=== PATIENT | female | born 1970 | race Caucasian/White ===

== ENCOUNTER 2017-12-21 00:04 | Emergency (ER) | payer MEDICARE, MEDICAID ==
[~2017-12-21] VITALS: Ht 167.6 cm; Wt 78.6 kg
[2017-12-21 00:43] LABS: COLOR,URINE YELLOW (Yellow); GLUCOSE, URINE NEGATIVE (Neg); KETONES,URINE TRACE mg/dl (Neg); LEUKOCYTE ESTERASE ,URINE NEGATIVE (Neg); NITRITES, URINE NEGATIVE (Neg); OCCULT BLOOD,URINE NEGATIVE (Neg); PH,URINE 6.5 (4.8-8.0); PROTEIN,URINE TRACE mg/dl (Neg); UROBILINOGEN,URINE 0.2 E.U/dL (0.2-1.0)
[2017-12-21 01:06] LABS: BACTERIA,URINE FEW /HPF (Neg); CLARITY,URINE CLOUDY (Clear); MUCUS STRANDS MANY /LPF (Neg); RBC,URINE NONE SEEN /HPF (0-2); SQUAMOUS EPITHELIAL CELL,UR MANY /LPF (FEW); UA COLLECTION TYPE CLN CATCH MIDSTREAM
[2017-12-21 01:06] LABS: BASOPHILS # (AUTO) 0.1 X10'3 (0-0.2); BASOPHILS % (AUTO) 0.6 % (0-1); EOSINOPHILS # (AUTO) 0.4 X10'3 (0-0.9); EOSINOPHILS % (AUTO) 3.1 % (0-6); HEMATOCRIT 34.4 % (35.0-45.0); HEMOGLOBIN 11.6 g/dl (12.0-16.0); LYMPHOCYTES # (AUTO) 2.6 X10'3 (1.1-4.8); MEAN CORPUSCULAR HEMOGLOBIN 29.6 PG (27.0-31.0); MEAN CORPUSCULAR HGB CONC 33.8 % (33.0-36.5); MEAN CORPUSCULAR VOLUME 87.7 FL (78-98); MEAN PLATELET VOLUME 8.3 FL (7.4-10.4); MONOCYTES # (AUTO) 0.4 X10'3 (0-0.9); MONOCYTES % (AUTO) 3.2 % (2-12); NEUTROPHILS # (AUTO) 9.5 X10'3 (1.8-7.7); NEUTROPHILS % (AUTO) 73.1 % (42-75); PLATELET COUNT 350 X10'3 (140-440); RED BLOOD COUNT 3.92 X10'6 (4.20-5.60); RED CELL DISTRIBUTION WIDTH 11.8 % (11.5-14.5)
[2017-12-21 01:16] LABS: PROTHROMBIN TIME 9.9 SECONDS (9.0-12.0)
[2017-12-21 01:22] LABS: ALANINE AMINOTRANSFERASE 84 U/L (12-78); ALBUMIN 3.7 G/DL (3.4-5.0); ALBUMIN/GLOBULIN RATIO 0.8 (1.1-1.5); ALKALINE PHOSPHATASE 229 IU/L (46-116); ANION GAP 9 (8-16); ASPARTATE AMINO TRANSFERASE 32 U/L (10-37); BILIRUBIN,TOTAL 0.5 MG/DL (0.1-1.0); BLOOD UREA NITROGEN 18 MG/DL (7-18); BUN/CREATININE RATIO 17.5 (6.6-38.0); CALCIUM 9.4 MG/DL (8.5-10.1); CHLORIDE 104 MMOL/L (99-107); CREATININE 1.03 MG/DL (0.40-0.90); GLUCOSE 106 MG/DL (70-104); POTASSIUM 3.7 MMOL/L (3.5-5.1); SODIUM 143 MMOL/L (135-145); TOTAL CARBON DIOXIDE 29.9 MMOL/L (24-32); TOTAL PROTEIN 8.2 G/DL (6.4-8.2); eGFR 57 ML/MIN
[2017-12-21] MEDS ORDERED: ondansetron/PF 4mg/2ml inj IV ONE (01:55)
[2017-12-21] MEDS ORDERED: morphine 4 MG/ML inj SYRINge IV ONE (01:55)
[2017-12-21] MEDS ORDERED: LORazepam 2 mg/ml vial IV ONE (01:55)
[2017-12-21] MEDS ORDERED: normal saline 1000ML IV soln IVB ONE (01:55)
[2017-12-21] MEDS ORDERED: iohexol 300mg/ml 100ml inj. ONE (02:00)
[2017-12-21 02:44] VITALS: BP 128/98
[2017-12-21] MEDS ORDERED: clindamycin 150mg capsule PO ONE (03:45)
[2017-12-21] MEDS ORDERED: CLIN-80 PO (03:47)
== END 2017-12-21 04:26 | disposition home or self-care (01) ==
LOC: ER 00:05
DX: L03.311 Cellulitis of abdominal wall (principal); E11.9 Type 2 diabetes mellitus without complications; I11.0 Hypertensive heart disease with heart failure; I50.9 Heart failure, unspecified; Z88.5 Allergy status to narcotic agent; Z88.0 Allergy status to penicillin; Z88.1 Allergy status to other antibiotic agents; Z88.2 Allergy status to sulfonamides; Z88.8 Allergy status to other drugs, medicaments and biological substances
CPT/HCPCS: 36415; 74177; 80053; 81001; 85025; 85610; 96361; 96374; 96375; 99285; J2060; J2270; J2405; J7030; Q9967

== ENCOUNTER 2017-12-23 01:18 | Emergency (ER) | payer MEDICARE, MEDICAID ==
[~2017-12-23] VITALS: Ht 167.6 cm; Wt 89.6 kg
[~2017-12-23 01:18] MED LIST: CLIN-80 PO
[2017-12-23 01:25] VITALS: BP 136/79
[2017-12-23] MEDS ORDERED: normal saline 1000ML IV soln IV ONE (01:35)
[2017-12-23 02:27] LABS: BASOPHILS % (AUTO) 0.4 % (0-1); EOSINOPHILS # (AUTO) 0.9 X10'3 (0-0.9); EOSINOPHILS % (AUTO) 8.7 % (0-6); HEMATOCRIT 30.8 % (35.0-45.0); HEMOGLOBIN 10.5 g/dl (12.0-16.0); LYMPHOCYTES # (AUTO) 2.1 X10'3 (1.1-4.8); MEAN CORPUSCULAR HEMOGLOBIN 30.2 PG (27.0-31.0); MEAN CORPUSCULAR HGB CONC 34.1 % (33.0-36.5); MEAN CORPUSCULAR VOLUME 88.5 FL (78-98); MEAN PLATELET VOLUME 7.8 FL (7.4-10.4); MONOCYTES # (AUTO) 0.4 X10'3 (0-0.9); MONOCYTES % (AUTO) 3.5 % (2-12); NEUTROPHILS % (AUTO) 67.4 % (42-75); PLATELET COUNT 336 X10'3 (140-440); RED BLOOD COUNT 3.48 X10'6 (4.20-5.60); RED CELL DISTRIBUTION WIDTH 12.4 % (11.5-14.5); WHITE BLOOD COUNT 10.4 X10'3 (4.5-11.0)
[2017-12-23 02:37] LABS: INR 0.9 INR; PARTIAL THROMBOPLASTIN TIME 28 SECONDS (22-32); PROTHROMBIN TIME 9.6 SECONDS (9.0-12.0)
[2017-12-23] MEDS ORDERED: HYDROcodone/acetaminophen 5mg/325mg tablet PO ONE (02:40)
[2017-12-23 02:48] LABS: ALANINE AMINOTRANSFERASE 155 U/L (12-78); ALBUMIN 3.1 G/DL (3.4-5.0); ALBUMIN/GLOBULIN RATIO 0.8 (1.1-1.5); ALKALINE PHOSPHATASE 291 IU/L (46-116); ANION GAP 11 (8-16); ASPARTATE AMINO TRANSFERASE 88 U/L (10-37); BILIRUBIN,TOTAL 0.2 MG/DL (0.1-1.0); BLOOD UREA NITROGEN 18 MG/DL (7-18); BUN/CREATININE RATIO 27.7 (6.6-38.0); CALCIUM 8.7 MG/DL (8.5-10.1); CHLORIDE 108 MMOL/L (99-107); CREATININE 0.65 MG/DL (0.40-0.90); GLUCOSE 138 MG/DL (70-104); MAGNESIUM 1.9 MG/DL (1.5-2.4); POTASSIUM 3.9 MMOL/L (3.5-5.1); SODIUM 144 MMOL/L (135-145); TOTAL CARBON DIOXIDE 25.2 MMOL/L (24-32); TOTAL PROTEIN 7.1 G/DL (6.4-8.2); eGFR > 90 ML/MIN
== END 2017-12-23 02:47 | disposition home or self-care (01) ==
LOC: ER 01:19
DX: L02.211 Cutaneous abscess of abdominal wall (principal); L03.311 Cellulitis of abdominal wall; I11.0 Hypertensive heart disease with heart failure; I50.9 Heart failure, unspecified; E11.9 Type 2 diabetes mellitus without complications; Z88.1 Allergy status to other antibiotic agents; Z88.2 Allergy status to sulfonamides; Z88.5 Allergy status to narcotic agent; Z88.0 Allergy status to penicillin; Z88.8 Allergy status to other drugs, medicaments and biological substances; Z98.890 Other specified postprocedural states
CPT/HCPCS: 36415; 80053; 83605; 83735; 84145; 85025; 85610; 85730; 87040; 99284; J7030

== ENCOUNTER 2018-08-15 08:53 | Inpatient (IN) | payer MEDICARE, MEDICAID ==
[2018-08-09 16:35] LABS: BASOPHILS # (AUTO) 0.1 X10'3 (0-0.2); EOSINOPHILS # (AUTO) 0.3 X10'3 (0-0.9); EOSINOPHILS % (AUTO) 3.5 % (0-6); LYMPHOCYTES % (AUTO) 30.8 % (21-51); MEAN CORPUSCULAR HEMOGLOBIN 28.3 PG (27.0-31.0); MEAN CORPUSCULAR HGB CONC 32.8 % (33.0-36.5); MEAN CORPUSCULAR VOLUME 86.4 FL (78-98); MONOCYTES # (AUTO) 0.4 X10'3 (0-0.9); MONOCYTES % (AUTO) 4.4 % (2-12); NEUTROPHILS # (AUTO) 5.9 X10'3 (1.8-7.7); NEUTROPHILS % (AUTO) 60.3 % (42-75); PRE OP HEMATOCRIT 40.8 % (35.0-45.0); PRE OP HEMOGLOBIN 13.4 g/dL (12.0-16.0); PRE OP PLATELET COUNT 409 X10'3 (140-440); RED BLOOD COUNT 4.72 X10'6 (4.20-5.60); RED CELL DISTRIBUTION WIDTH 13.2 % (11.5-14.5)
[2018-08-09 16:56] LABS: ALBUMIN 4.3 G/DL (3.4-5.0); ALBUMIN/GLOBULIN RATIO 1.1 (1.1-1.5); ALKALINE PHOSPHATASE 112 IU/L (46-116); BLOOD UREA NITROGEN 20 MG/DL (7-18); BUN/CREATININE RATIO 22.5 (6.6-38.0); CALCIUM 9.7 MG/DL (8.5-10.1); CHLORIDE 101 MMOL/L (99-107); CREATININE 0.89 MG/DL (0.40-0.90); PRE OP ALT 44 U/L (30-65); PRE OP ANION GAP 8 (8-16); PRE OP AST 22 U/L (10-37); PRE OP BILIRUB, TOTAL 1.2 MG/DL (0.0-1.0); PRE OP GLUCOSE 99 MG/DL (70-104); PRE OP POTASSIUM 3.7 MMOL/L (3.4-5.1); PRE OP SODIUM 140 MMOL/L (135-145); TOTAL CARBON DIOXIDE 31.4 MMOL/L (24-32); TOTAL PROTEIN 8.3 G/DL (6.4-8.2); eGFR 68 ML/MIN
[2018-08-15] VITALS (18 sets, daily range): BP systolic 110–161; BP diastolic 58–85
[~2018-08-15] VITALS: Ht 170.2 cm; Wt 106.7 kg
[~2018-08-15 08:53] MED LIST changes: +BACL20TA7 PO; +CHOL500044 PO; -CLIN-80 PO; +SERT50TA10 PO; +TOPI25TA49 PO; +cefazolin/dext.iso 2gm/100 ML IV ONE; +famotidine 20mg tablet PO ONE; +ringers solution, lacted 1,000 ML IV SCH; +tranexamic acid inj. 1,000 MG in normal saline 100ml IV soln 90 ML IV ONE
[2018-08-15] MEDS ORDERED: ketorolac trometh. 30mg/ml inj. ONE (10:06)
[2018-08-15] MEDS ORDERED: ROPIVAcaine 0.5% (5mg/ml) 30ml vial ONE ×3 (10:06→14:06)
[2018-08-15] MEDS ORDERED: vancomycin 1,000mg inj ONE (10:07)
[2018-08-15] MEDS ORDERED: MIDAZolam 1mg/ml 10ml vial ONE (11:58)
[2018-08-15] MEDS ORDERED: fentaNYL/PF 50MCG/1 ML 2ML syringe ONE (11:58)
[2018-08-15] MEDS ORDERED: BUPIVAcaine/dex-water/PF 7.5 mg/ml 2ml ampul ONE (11:59)
[2018-08-15] MEDS ORDERED: ringers solution, lacted 1,000 ML IV SCH (14:30)
[2018-08-15] MEDS ORDERED: ondansetron/PF 4mg/2ml inj IV PRN (14:30)
[2018-08-15] MEDS ORDERED: proCHLORperazine 10 MG/2 ml inj IV PRN (14:30)
[2018-08-15] MEDS ORDERED: meperidine/PF 25mg/ml syringe IV PRN ×3 (14:30)
[2018-08-15] MEDS ORDERED: HYDROmorphone 1 mg/ml syringe IV PRN (14:50)
[2018-08-15] MEDS ORDERED: bisacodyl 10mg suppository rectal RC PRN (14:50)
[2018-08-15] MEDS ORDERED: acetaminophen 325mg tablet PO PRN (14:50)
[2018-08-15] MEDS ORDERED: oxyCODONE IR 5mg (immed. release) tablet PO PRN (14:50)
[2018-08-15] MEDS ORDERED: diphenhydrAMINE 25mg capsule PO PRN ×2 (14:50)
[2018-08-15] MEDS ORDERED: magnesium hydroxide 30ml (MOM) UD suspension PO PRN (14:50)
[2018-08-15] MEDS: oxyCODONE IR 5mg (immed. release) tablet PO PRN ×2 (16:48→21:06)
[2018-08-15] MEDS: ceFAZolin 1GM/D5W- ADD-VANTAGE 50 ML IV SCH ×2 (16:49→23:12)
[2018-08-15] MEDS: baclofen 10mg tablet PO SCH ×2 (16:49→21:04)
[2018-08-15] MEDS ORDERED: tranexamic acid inj. 1,000 MG in normal saline 100ml IV soln 100 ML IV ONE (18:00)
[2018-08-15] MEDS: HYDROmorphone 1 mg/ml syringe IV PRN ×2 (18:43→23:08)
[2018-08-15] MEDS: ondansetron/PF 4mg/2ml inj IV PRN (19:10)
[2018-08-15] MEDS ORDERED: acetaminophen 325mg tablet PO SCH (20:00)
[2018-08-15] MEDS: topiramate 25mg tablet PO SCH (21:03)
[2018-08-15] MEDS: sennosides 8.6mg tablet PO SCH (21:03)
[2018-08-15] MEDS: gabapentin 300mg capsule PO SCH (21:04)
[2018-08-15] MEDS: potassium cl 20mEq in 1/2 NS 1,000 ML IV SCH (23:12)
[2018-08-16] MEDS: potassium cl 20mEq in 1/2 NS 1,000 ML IV SCH ×4 (00:37→23:46)
[2018-08-16] MEDS: oxyCODONE IR 5mg (immed. release) tablet PO PRN ×4 (01:16→20:12)
[2018-08-16] MEDS: HYDROmorphone 1 mg/ml syringe IV PRN ×4 (04:11→18:45)
[2018-08-16 06:02] LABS: BASOPHILS % (AUTO) 0.3 % (0-1); EOSINOPHILS # (AUTO) 0.2 X10'3 (0-0.9); EOSINOPHILS % (AUTO) 1.8 % (0-6); HEMATOCRIT 29.3 % (35.0-45.0); HEMOGLOBIN 9.8 g/dl (12.0-16.0); LYMPHOCYTES # (AUTO) 1.4 X10'3 (1.1-4.8); LYMPHOCYTES % (AUTO) 10.7 % (21-51); MEAN CORPUSCULAR HEMOGLOBIN 28.4 PG (27.0-31.0); MEAN CORPUSCULAR HGB CONC 33.4 % (33.0-36.5); MEAN CORPUSCULAR VOLUME 84.9 FL (78-98); MEAN PLATELET VOLUME 7.9 FL (7.4-10.4); MONOCYTES # (AUTO) 0.5 X10'3 (0-0.9); MONOCYTES % (AUTO) 3.8 % (2-12); NEUTROPHILS # (AUTO) 10.8 X10'3 (1.8-7.7); NEUTROPHILS % (AUTO) 83.4 % (42-75); PLATELET COUNT 290 X10'3 (140-440); RED BLOOD COUNT 3.45 X10'6 (4.20-5.60); RED CELL DISTRIBUTION WIDTH 12.7 % (11.5-14.5); WHITE BLOOD COUNT 12.9 X10'3 (4.5-11.0)
[2018-08-16] MEDS: baclofen 10mg tablet PO PRN ×2 (06:13→18:54)
[2018-08-16 06:14] LABS: ANION GAP 8 (8-16); CHLORIDE 102 MMOL/L (99-107); POTASSIUM 4.2 MMOL/L (3.5-5.1); SODIUM 137 MMOL/L (135-145); TOTAL CARBON DIOXIDE 27.4 MMOL/L (24-32)
[2018-08-16 07:27] VITALS: BP 100/48
[2018-08-16 07:28] VITALS: BP 100/48
[2018-08-16] MEDS: vitamin D (cholecalciferol) 1,000 unit tablet PO SCH (08:13)
[2018-08-16] MEDS: topiramate 25mg tablet PO SCH ×2 (08:13→20:13)
[2018-08-16] MEDS: gabapentin 300mg capsule PO SCH ×3 (08:13→20:12)
[2018-08-16] MEDS: aspirin 325mg tablet PO SCH (08:14)
[2018-08-16] MEDS: sertraline 50mg tablet PO SCH (08:14)
[2018-08-16] MEDS: ondansetron/PF 4mg/2ml inj IV PRN (08:43)
[2018-08-16 12:44] VITALS: BP 106/58
[2018-08-16] MEDS: sennosides 8.6mg tablet PO SCH (20:12)
[2018-08-16] MEDS: celeCOXIB 100mg capsule PO SCH (20:12)
[2018-08-16 22:08] VITALS: BP 102/54
[2018-08-17] MEDS: oxyCODONE IR 5mg (immed. release) tablet PO PRN ×2 (00:06→04:36)
[2018-08-17] MEDS: HYDROmorphone 1 mg/ml syringe IV PRN ×3 (02:49→09:19)
[2018-08-17] MEDS: baclofen 10mg tablet PO PRN (02:49)
[2018-08-17] MEDS ORDERED: oxyCODONE/APAP 10/325mg tablet PO PRN (05:20)
[2018-08-17] MEDS ORDERED: HYDROmorphone 1 mg/ml syringe IV PRN (05:20)
[2018-08-17 06:00] VITALS: BP 118/72
[2018-08-17] MEDS: potassium cl 20mEq in 1/2 NS 1,000 ML IV SCH (07:00)
[2018-08-17 07:04] LABS: BASOPHILS % (AUTO) 0.2 % (0-1); EOSINOPHILS # (AUTO) 0.4 X10'3 (0-0.9); EOSINOPHILS % (AUTO) 3.2 % (0-6); HEMATOCRIT 28.2 % (35.0-45.0); HEMOGLOBIN 9.4 g/dl (12.0-16.0); LYMPHOCYTES # (AUTO) 1.5 X10'3 (1.1-4.8); LYMPHOCYTES % (AUTO) 12.1 % (21-51); MEAN CORPUSCULAR HEMOGLOBIN 28.5 PG (27.0-31.0); MEAN CORPUSCULAR HGB CONC 33.3 % (33.0-36.5); MEAN CORPUSCULAR VOLUME 85.7 FL (78-98); MEAN PLATELET VOLUME 8.5 FL (7.4-10.4); MONOCYTES # (AUTO) 0.6 X10'3 (0-0.9); MONOCYTES % (AUTO) 4.7 % (2-12); NEUTROPHILS # (AUTO) 9.9 X10'3 (1.8-7.7); NEUTROPHILS % (AUTO) 79.8 % (42-75); PLATELET COUNT 243 X10'3 (140-440); RED BLOOD COUNT 3.29 X10'6 (4.20-5.60); WHITE BLOOD COUNT 12.4 X10'3 (4.5-11.0)
[2018-08-17] MEDS: gabapentin 300mg capsule PO SCH ×3 (08:00→21:00)
[2018-08-17] MEDS: sertraline 50mg tablet PO SCH (08:26)
[2018-08-17] MEDS: aspirin 325mg tablet PO SCH (08:26)
[2018-08-17] MEDS: celeCOXIB 100mg capsule PO SCH ×2 (08:27→20:50)
[2018-08-17] MEDS: vitamin D (cholecalciferol) 1,000 unit tablet PO SCH (08:27)
[2018-08-17] MEDS: topiramate 25mg tablet PO SCH ×2 (08:27→20:50)
[2018-08-17 10:00] VITALS: BP 108/57
[2018-08-17] MEDS ORDERED: ASPI-1 PO (10:04)
[2018-08-17] MEDS ORDERED: PER10325T PO (10:04)
[2018-08-17] MEDS: oxyCODONE/APAP 10/325mg tablet PO PRN ×3 (12:43→21:26)
[2018-08-17] MEDS ORDERED: acetaminophen 325mg tablet PO PRN (14:50)
[2018-08-17] MEDS: ondansetron/PF 4mg/2ml inj IV PRN (15:59)
[2018-08-17 18:00] VITALS: BP 112/53
[2018-08-17] MEDS: sennosides 8.6mg tablet PO SCH (20:50)
[2018-08-17 22:00] VITALS: BP 107/31
[2018-08-18] MEDS: oxyCODONE/APAP 10/325mg tablet PO PRN ×2 (01:25→05:16)
[2018-08-18 05:00] VITALS: BP 114/36
[2018-08-18] MEDS: gabapentin 300mg capsule PO SCH (07:47)
[2018-08-18] MEDS: celeCOXIB 100mg capsule PO SCH (07:50)
[2018-08-18] MEDS: topiramate 25mg tablet PO SCH (07:51)
[2018-08-18] MEDS: vitamin D (cholecalciferol) 1,000 unit tablet PO SCH (07:52)
[2018-08-18] MEDS: aspirin 325mg tablet PO SCH (07:55)
[2018-08-18] MEDS: sertraline 50mg tablet PO SCH (07:55)
[2018-08-18 08:08] LABS: BASOPHILS % (AUTO) 0.7 % (0-1); EOSINOPHILS # (AUTO) 0.6 X10'3 (0-0.9); EOSINOPHILS % (AUTO) 9.3 % (0-6); HEMATOCRIT 27.7 % (35.0-45.0); HEMOGLOBIN 9.1 g/dl (12.0-16.0); LYMPHOCYTES # (AUTO) 1.1 X10'3 (1.1-4.8); LYMPHOCYTES % (AUTO) 16.8 % (21-51); MEAN CORPUSCULAR HEMOGLOBIN 28.2 PG (27.0-31.0); MEAN CORPUSCULAR HGB CONC 32.8 % (33.0-36.5); MONOCYTES # (AUTO) 0.3 X10'3 (0-0.9); MONOCYTES % (AUTO) 4.3 % (2-12); NEUTROPHILS # (AUTO) 4.5 X10'3 (1.8-7.7); NEUTROPHILS % (AUTO) 68.9 % (42-75); PLATELET COUNT 247 X10'3 (140-440); RED BLOOD COUNT 3.22 X10'6 (4.20-5.60); RED CELL DISTRIBUTION WIDTH 13.4 % (11.5-14.5); WHITE BLOOD COUNT 6.5 X10'3 (4.5-11.0)
[2018-08-18 10:00] VITALS: BP 101/58
== END 2018-08-18 11:24 | disposition home health service (06) | DRG 470 ==
LOC: PAS IN 08:53 → EDSTATUS 11:00 → ORTHO 4S 16:10
PROVIDERS: ADMIT Orthopaedic Surgery; ATTEND Orthopaedic Surgery
PROC: 3E0T3BZ Introduction of Anesthetic Agent into Peripheral Nerves and Plexi, Percutaneous Approach (ICD-10-PCS; 2018-08-15)
PROC: 8E0YXBZ Computer Assisted Procedure of Lower Extremity (ICD-10-PCS; 2018-08-15)
PROC: 8E0Y0CZ Robotic Assisted Procedure of Lower Extremity, Open Approach (ICD-10-PCS; 2018-08-15)
PROC: 0SRC0JZ Replacement of Right Knee Joint with Synthetic Substitute, Open Approach (ICD-10-PCS; principal; 2018-08-15 11:55)
DX: M17.0 Bilateral primary osteoarthritis of knee (principal); D62 Acute posthemorrhagic anemia; K21.9 Gastro-esophageal reflux disease without esophagitis; M79.7 Fibromyalgia; E03.9 Hypothyroidism, unspecified; I25.10 Atherosclerotic heart disease of native coronary artery without angina pectoris; F32.9 Major depressive disorder, single episode, unspecified; I50.9 Heart failure, unspecified; G35 Multiple sclerosis; G89.29 Other chronic pain; Z88.6 Allergy status to analgesic agent; Z88.5 Allergy status to narcotic agent; Z88.0 Allergy status to penicillin; Z91.048 Other nonmedicinal substance allergy status; Z79.82 Long term (current) use of aspirin; Z79.899 Other long term (current) drug therapy; Z87.891 Personal history of nicotine dependence; Z85.51 Personal history of malignant neoplasm of bladder
CPT/HCPCS: 36415; 80051; 80053; 85025; 87070; 97110; 97116; 97162; 97530; A6455; A7000; C1713; C1758; C1776; G0378; J0690; J1170; J1885; J2250; J2405; J2795; J3010; J3370; J3490; J7030; J7120; Q0163

== ENCOUNTER 2018-08-29 16:08 | Outpatient (CLI) | payer MEDICARE, MEDICAID ==
[~2018-08-29 16:08] MED LIST changes: +ASPI-1 PO; +PER10325T PO; -cefazolin/dext.iso 2gm/100 ML IV ONE; -famotidine 20mg tablet PO ONE; -ringers solution, lacted 1,000 ML IV SCH; -tranexamic acid inj. 1,000 MG in normal saline 100ml IV soln 90 ML IV ONE
== END 2018-08-29 23:59 | disposition home or self-care (01) ==
LOC: VAS 16:08
PROVIDERS: ATTEND Physician Assistant Medical
DX: R22.41 Localized swelling, mass and lump, right lower limb (principal); I25.2 Old myocardial infarction; I50.9 Heart failure, unspecified; Z96.651 Presence of right artificial knee joint; Z88.6 Allergy status to analgesic agent; Z88.0 Allergy status to penicillin; Z88.2 Allergy status to sulfonamides; Z79.82 Long term (current) use of aspirin; Z79.899 Other long term (current) drug therapy
CPT/HCPCS: 93971

== ENCOUNTER 2019-05-28 08:11 | Inpatient (IN) | payer MEDICARE, MEDICAID ==
[2019-05-22 11:47] LABS: BASOPHILS # (AUTO) 0.1 X10'3 (0-0.2); BASOPHILS % (AUTO) 1.2 % (0-1); EOSINOPHILS # (AUTO) 0.5 X10'3 (0-0.9); EOSINOPHILS % (AUTO) 6.6 % (0-6); LYMPHOCYTES # (AUTO) 1.9 X10'3 (1.1-4.8); LYMPHOCYTES % (AUTO) 24.9 % (21-51); MEAN CORPUSCULAR HEMOGLOBIN 28.4 PG (27.0-31.0); MEAN CORPUSCULAR VOLUME 86.1 FL (78-98); MEAN PLATELET VOLUME 7.8 FL (7.4-10.4); MONOCYTES # (AUTO) 0.3 X10'3 (0-0.9); MONOCYTES % (AUTO) 4.4 % (2-12); NEUTROPHILS # (AUTO) 4.9 X10'3 (1.8-7.7); NEUTROPHILS % (AUTO) 62.9 % (42-75); PRE OP HEMATOCRIT 35.7 % (35.0-45.0); PRE OP HEMOGLOBIN 11.8 g/dL (12.0-16.0); PRE OP PLATELET COUNT 311 X10'3 (140-440); RED BLOOD COUNT 4.14 X10'6 (4.20-5.60); RED CELL DISTRIBUTION WIDTH 13.6 % (11.5-14.5)
[2019-05-22 12:04] LABS: ALBUMIN 3.7 G/DL (3.4-5.0); ALKALINE PHOSPHATASE 107 IU/L (46-116); BLOOD UREA NITROGEN 18 MG/DL (7-18); CHLORIDE 108 MMOL/L (99-107); PRE OP ALT 40 U/L (30-65); PRE OP ANION GAP 8 (8-16); PRE OP AST 22 U/L (10-37); PRE OP BILIRUB, TOTAL 0.7 MG/DL (0.0-1.0); PRE OP GLUCOSE 98 MG/DL (70-104); PRE OP POTASSIUM 3.8 MMOL/L (3.4-5.1); PRE OP SODIUM 144 MMOL/L (135-145); TOTAL CARBON DIOXIDE 27.7 MMOL/L (24-32); TOTAL PROTEIN 7.4 G/DL (6.4-8.2); eGFR 67 ML/MIN
[2019-05-28] VITALS (16 sets, daily range): BP systolic 118–159; BP diastolic 65–90
[~2019-05-28] VITALS: Ht 170.2 cm; Wt 111.0 kg
[~2019-05-28 08:11] MED LIST changes: -ASPI-1 PO; +LISI10TA4 PO; +MESSAGE TO NURSING IV ONE; +MIRT15TA3 PO; -PER10325T PO; +PRAZ1CAP5 PO; +SERT100T10 PO; -SERT50TA10 PO; -TOPI25TA49 PO; +famotidine 20mg tablet PO ONE; +ringers solution, lacted 1,000 ML IV SCH; +scopolamine 1.5mg patch.TD72 TD ONE
[2019-05-28] MEDS ORDERED: ketorolac trometh. 30mg/ml inj. ONE (10:13)
[2019-05-28] MEDS ORDERED: ROPIVAcaine 0.5% (5mg/ml) 30ml vial ONE ×2 (10:13→15:01)
[2019-05-28] MEDS ORDERED: cefazolin/dext.iso 2gm/100ml 100 ML IV ONE (11:25)
[2019-05-28] MEDS ORDERED: MIDAZolam 1mg/ml 10ml vial ONE (12:08)
[2019-05-28] MEDS ORDERED: fentaNYL/PF 50MCG/1 ML 2ML syringe ONE (12:08)
[2019-05-28] MEDS ORDERED: propofol inj 20 ML IV ONE (12:52)
[2019-05-28 14:14] LABS: APPEARANCE,SYNOVIAL FLUID CLOUDY; COLOR,SYNOVIAL FLUID RED
[2019-05-28 14:15] LABS: SYN RBC 33000 /CU MM (0); SYN WBC 59 /CU MM (0-200)
[2019-05-28] MEDS ORDERED: ROPIVAcaine 0.2%/PF PAIN PUMP 550 ML IJ SCH (14:18)
[2019-05-28] MEDS ORDERED: ringers solution, lacted 1,000 ML IV SCH (14:18)
[2019-05-28] MEDS ORDERED: proCHLORperazine 10 MG/2 ml inj IV PRN (14:20)
[2019-05-28] MEDS ORDERED: meperidine/PF 25mg/ml syringe IV PRN ×3 (14:20)
[2019-05-28] MEDS ORDERED: ondansetron/PF 4mg/2ml inj IV PRN (14:20)
[2019-05-28 14:54] LABS: MONOCYTES,SYNOVIAL FLUID 10 % (0-0); SYNOVIAL LINING CELLS FEW
[2019-05-28 14:59] LABS: LYMPHOCYTES,SYNOVIAL FLUID 44 % (0-75); NEUTROPHILS,SYNOVIAL FLUID 46 % (0-25)
--- NOTE | 2019-05-28 15:00 | NUR ---
ADMITTED TO PACU FROM OR ACCOMPANIED BY ANESTHESIA. INTIAL PHYSICAL ASSESSMENT DONE AND RECORDED. AWAKE AND RESPONSE ON ARRIVE YO PACU, REPORT RECEIVED FROM ANESTHESIA
[2019-05-28] MEDS ORDERED: oxyCODONE IR 5mg (immed. release) tablet PO PRN ×2 (15:05→20:00)
[2019-05-28] MEDS ORDERED: bisacodyl 10mg suppository rectal RC PRN (15:05)
[2019-05-28] MEDS ORDERED: HYDROmorphone inj. 0.5 MG/0.5 ML DISP.SYRIN IV PRN (15:05)
[2019-05-28] MEDS ORDERED: acetaminophen 325mg tablet PO PRN (15:05)
[2019-05-28] MEDS ORDERED: HYDROmorphone 1 mg/ml syringe IV PRN (15:05)
[2019-05-28] MEDS ORDERED: magnesium hydroxide 30ml (MOM) UD suspension PO PRN (15:05)
[2019-05-28] MEDS ORDERED: diphenhydrAMINE 25mg capsule PO PRN ×2 (15:05)
--- NOTE | 2019-05-28 15:47 | NUR ---
received report from Analia JUAREZ in the OR
--- NOTE | 2019-05-28 16:00 | NUR ---
PACU DISCHARGE CRITERIA MET, REPORT GIVEN TO FLOOR. DENIES PAIN OR DISCOMFORT, TRANSFERRED TO ROOM IN STABLE GOOD CONDITION.
[2019-05-28] MEDS: ondansetron/PF 4mg/2ml inj IV PRN (16:16)
[2019-05-28] MEDS: ceFAZolin 1GM/D5W- ADD-VANTAGE 50 ML IV SCH ×2 (16:21→23:55)
[2019-05-28] MEDS: baclofen 10mg tablet PO SCH ×2 (17:38→20:11)
[2019-05-28] MEDS: oxyCODONE IR 5mg (immed. release) tablet PO PRN ×2 (17:39→23:37)
--- NOTE | 2019-05-28 17:57 | NUR ---
On-Q pump increased to 10ml/hr per Dr. Camarena
[2019-05-28] MEDS ORDERED: oxyCODONE IR 5mg (immed. release) tablet PO ONE (18:05)
--- NOTE | 2019-05-28 18:23 | NUR ---
Problems reprioritized. Patient report given, questions answered & plan of care reviewed with Ryanne JUAREZ.
--- NOTE | 2019-05-28 18:24 | NUR ---
Patient in room ORTHO 4022. I have received report from Moisés JUAREZ and had the opportunity to ask questions and assume patient care.
[2019-05-28] MEDS ORDERED: tranexamic acid inj. 1,000 MG in normal saline 100ml IV soln 100 ML IV ONE (18:30)
[2019-05-28] MEDS: acetaminophen 325mg tablet PO SCH (20:11)
[2019-05-28] MEDS: sennosides 8.6mg tablet PO SCH (20:11)
[2019-05-28] MEDS: mirtazapine 15mg tablet PO SCH (20:12)
[2019-05-28] MEDS: prazosin 1mg capsule PO SCH (20:12)
[2019-05-28] MEDS: sertraline 50mg tablet PO SCH (20:12)
[2019-05-28] MEDS: potassium cl 20mEq in 1/2 NS 1,000 ML IV SCH ×2 (23:02→23:33)
[2019-05-29] VITALS (8 sets, daily range): BP systolic 84–123; BP diastolic 33–67
[2019-05-29] MEDS: acetaminophen 325mg tablet PO SCH ×4 (01:46→20:18)
[2019-05-29 05:16] LABS: BASOPHILS % (AUTO) 0.3 % (0-1); EOSINOPHILS % (AUTO) 0.1 % (0-6); HEMATOCRIT 27.8 % (35.0-45.0); HEMOGLOBIN 9.3 g/dl (12.0-16.0); LYMPHOCYTES # (AUTO) 0.8 X10'3 (1.1-4.8); LYMPHOCYTES % (AUTO) 8.5 % (21-51); MEAN CORPUSCULAR HEMOGLOBIN 28.6 PG (27.0-31.0); MEAN CORPUSCULAR HGB CONC 33.5 g/dL (33.0-36.5); MEAN CORPUSCULAR VOLUME 85.3 FL (78-98); MEAN PLATELET VOLUME 7.3 FL (7.4-10.4); MONOCYTES # (AUTO) 0.3 X10'3 (0-0.9); MONOCYTES % (AUTO) 3.5 % (2-12); NEUTROPHILS # (AUTO) 7.9 X10'3 (1.8-7.7); NEUTROPHILS % (AUTO) 87.6 % (42-75); PLATELET COUNT 247 X10'3 (140-440); RED BLOOD COUNT 3.26 X10'6 (4.20-5.60); RED CELL DISTRIBUTION WIDTH 13.6 % (11.5-14.5); WHITE BLOOD COUNT 9.1 X10'3 (4.5-11.0)
[2019-05-29] MEDS: oxyCODONE IR 5mg (immed. release) tablet PO PRN ×3 (05:21→20:19)
[2019-05-29 05:29] LABS: ANION GAP 9 (8-16); CHLORIDE 106 MMOL/L (99-107); POTASSIUM 4.4 MMOL/L (3.5-5.1); SODIUM 141 MMOL/L (135-145); TOTAL CARBON DIOXIDE 26.5 MMOL/L (24-32)
--- NOTE | 2019-05-29 06:24 | NUR ---
Problems reprioritized. Patient report given, questions answered & plan of care reviewed with Kiah JUAREZ.
[2019-05-29] MEDS: potassium cl 20mEq in 1/2 NS 1,000 ML IV SCH ×2 (07:02→07:50)
[2019-05-29] MEDS: baclofen 10mg tablet PO SCH ×5 (07:42→20:17)
[2019-05-29] MEDS: lisinopril 10 MG tablet PO SCH (07:43)
[2019-05-29] MEDS: aspirin 325mg tablet PO SCH (07:43)
[2019-05-29] MEDS: vitamin D (cholecalciferol) 1,000 unit tablet PO SCH (07:43)
--- NOTE | 2019-05-29 13:53 | NUR ---
Joint replacement consult: Pt seen by NONI for written/verbal high protein ed. RD reviewed high protein needs for wound healing, immune strength, high protein foods, and protein supplementation options. RD contact information provided in case of further questions. Pt agrees to cottage cheese w/ pineapple TIDWM and 1% milk/oatmeal/brown sugar at breakfast; dietary notified. Addendum: 05/29/19 at [address] Amended: Links added.
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
--- NOTE | 2019-05-29 18:36 | NUR ---
Problems reprioritized. Patient report given, questions answered & plan of care reviewed with Ryanne JUAREZ.
--- NOTE | 2019-05-29 18:37 | NUR ---
Patient in room ORTHO 4022. I have received report from Kiah De Guzman and had the opportunity to ask questions and assume patient care.
[2019-05-29] MEDS: mirtazapine 15mg tablet PO SCH (20:18)
[2019-05-29] MEDS: sertraline 50mg tablet PO SCH (20:18)
[2019-05-29] MEDS: prazosin 1mg capsule PO SCH (20:18)
[2019-05-29] MEDS: sennosides 8.6mg tablet PO SCH (20:19)
[2019-05-30] MEDS: potassium cl 20mEq in 1/2 NS 1,000 ML IV SCH (00:58)
[2019-05-30] MEDS: acetaminophen 325mg tablet PO SCH ×2 (02:08→08:22)
[2019-05-30] MEDS: oxyCODONE IR 5mg (immed. release) tablet PO PRN ×2 (02:08→07:49)
[2019-05-30 02:27] LABS: URINE AMPHETAMINE SCREEN POSITIVE (Neg); URINE BARBITUATE SCREEN NEGATIVE (Neg); URINE BENZODIAZEPINES SCREEN POSITIVE (Neg); URINE CANNABINOID SCREEN NEGATIVE (Neg); URINE COCAINE SCREEN NEGATIVE (Neg); URINE METHADONE SCREEN NEGATIVE (Neg); URINE OPIATE SCREEN POSITIVE (Neg); URINE PHENCYCLIDINE SCREEN NEGATIVE (Neg)
[2019-05-30 05:59] LABS: BASOPHILS % (AUTO) 0.6 % (0-1); EOSINOPHILS # (AUTO) 0.5 X10'3 (0-0.9); EOSINOPHILS % (AUTO) 5.9 % (0-6); HEMATOCRIT 23.9 % (35.0-45.0); LYMPHOCYTES # (AUTO) 1.6 X10'3 (1.1-4.8); LYMPHOCYTES % (AUTO) 18.5 % (21-51); MEAN CORPUSCULAR HEMOGLOBIN 28.8 PG (27.0-31.0); MEAN CORPUSCULAR HGB CONC 33.4 g/dL (33.0-36.5); MEAN CORPUSCULAR VOLUME 86.2 FL (78-98); MEAN PLATELET VOLUME 7.9 FL (7.4-10.4); MONOCYTES # (AUTO) 0.4 X10'3 (0-0.9); MONOCYTES % (AUTO) 4.5 % (2-12); NEUTROPHILS # (AUTO) 6.2 X10'3 (1.8-7.7); NEUTROPHILS % (AUTO) 70.5 % (42-75); PLATELET COUNT 217 X10'3 (140-440); RED BLOOD COUNT 2.78 X10'6 (4.20-5.60); RED CELL DISTRIBUTION WIDTH 13.7 % (11.5-14.5); WHITE BLOOD COUNT 8.7 X10'3 (4.5-11.0)
--- NOTE | 2019-05-30 06:38 | NUR ---
Problems reprioritized. Patient report given, questions answered & plan of care reviewed with Milka JUAREZ and Sarah JUAREZ.
--- NOTE | 2019-05-30 06:51 | NUR ---
Patient in room ORTHO 4022. I have received report from MILVIA and had the opportunity to ask questions and assume patient care.
[2019-05-30 06:54] VITALS: BP 102/35
[2019-05-30] MEDS: lisinopril 10 MG tablet PO SCH (08:00)
[2019-05-30] MEDS: vitamin D (cholecalciferol) 1,000 unit tablet PO SCH (08:21)
[2019-05-30] MEDS: baclofen 10mg tablet PO SCH (08:22)
[2019-05-30] MEDS ORDERED: ASPI-1 PO (08:37)
--- NOTE | 2019-05-30 09:03 | NUR ---
aware bp 102/35,map=57,ok to hold lisinopril dose
[2019-05-30] MEDS: aspirin 325mg tablet PO SCH (09:21)
[2019-05-30 10:00] VITALS: BP 126/60
[2019-05-30] MEDS ORDERED: ROPIVAcaine 0.2%/PF PAIN PUMP 550 ML IJ SCH (10:00)
[2019-05-30] MEDS: ondansetron/PF 4mg/2ml inj IV PRN (10:42)
--- NOTE | 2019-05-30 12:00 | NUR ---
Iv dc'd from [facility]FA site clear,pt discharged with all belongings,including walker,via wheelchair
[2019-05-30] MEDS ORDERED: acetaminophen 325mg tablet PO PRN (15:05)
== END 2019-05-30 11:59 | disposition home health service (06) | DRG 467 ==
LOC: PAS IN 08:11 → EDSTATUS 12:30 → ORTHO 4S 16:00 → EDSTATUS 05-29 11:15
PROVIDERS: ADMIT Orthopaedic Surgery; ATTEND Orthopaedic Surgery
PROC: 0SRC0L9 Replacement of Right Knee Joint with Medial Unicondylar Synthetic Substitute, Cemented, Open Approach (ICD-10-PCS; 2019-05-28)
PROC: 3E0T3BZ Introduction of Anesthetic Agent into Peripheral Nerves and Plexi, Percutaneous Approach (ICD-10-PCS; 2019-05-28)
PROC: 8E0YXBZ Computer Assisted Procedure of Lower Extremity (ICD-10-PCS; 2019-05-28)
PROC: 0SPC0LZ Removal of Medial Unicondylar Synthetic Substitute from Right Knee Joint, Open Approach (ICD-10-PCS; principal; 2019-05-28 12:00)
PROC: 5A09357 Assistance with Respiratory Ventilation, Less than 24 Consecutive Hours, Continuous Positive Airway Pressure (ICD-10-PCS; 2019-05-29)
PROC: 5A09357 Assistance with Respiratory Ventilation, Less than 24 Consecutive Hours, Continuous Positive Airway Pressure (ICD-10-PCS; 2019-05-30)
DX: T84.092A Other mechanical complication of internal right knee prosthesis, initial encounter (principal); D62 Acute posthemorrhagic anemia; K50.90 Crohn's disease, unspecified, without complications; M24.561 Contracture, right knee; F41.9 Anxiety disorder, unspecified; K21.9 Gastro-esophageal reflux disease without esophagitis; M79.7 Fibromyalgia; M32.9 Systemic lupus erythematosus, unspecified; I50.9 Heart failure, unspecified; I11.0 Hypertensive heart disease with heart failure; E66.9 Obesity, unspecified; F32.9 Major depressive disorder, single episode, unspecified; G35 Multiple sclerosis; Y83.1 Surgical operation with implant of artificial internal device as the cause of abnormal reaction of the patient, or of later complication, without mention of misadventure at the time of the procedure; Z88.0 Allergy status to penicillin; Z88.1 Allergy status to other antibiotic agents; Z88.2 Allergy status to sulfonamides; Z88.6 Allergy status to analgesic agent; Z88.8 Allergy status to other drugs, medicaments and biological substances; Z87.891 Personal history of nicotine dependence; Z90.710 Acquired absence of both cervix and uterus; Z90.49 Acquired absence of other specified parts of digestive tract; Z85.51 Personal history of malignant neoplasm of bladder; Z92.21 Personal history of antineoplastic chemotherapy; I25.2 Old myocardial infarction; Y92.89 Other specified places as the place of occurrence of the external cause; Z68.38 Body mass index [BMI] 38.0-38.9, adult
CPT/HCPCS: 36415; 80051; 80053; 80305; 82948; 85025; 87070; 87075; 87081; 87102; 87176; 89051; 97110; 97116; 97161; 97530; A4215; A6454; A7000; A9272; C1713; C1758; C1776; G0378; J0690; J1170; J1885; J2250; J2405; J2704; J2795; J3010; J3480; J7120

== ENCOUNTER 2019-06-09 20:20 | Emergency (ER) | payer MEDICARE, MEDICAID ==
[~2019-06-09] VITALS: Ht 170.2 cm; Wt 104.5 kg
[~2019-06-09 20:20] MED LIST changes: +ASPI-1 PO; -MESSAGE TO NURSING IV ONE; -famotidine 20mg tablet PO ONE; -ringers solution, lacted 1,000 ML IV SCH; -scopolamine 1.5mg patch.TD72 TD ONE
[2019-06-09 20:23] VITALS: BP 141/80
== END 2019-06-09 21:15 | disposition left against medical advice (07) ==
LOC: ER 20:21
DX: M25.569 Pain in unspecified knee (principal); R22.40 Localized swelling, mass and lump, unspecified lower limb; Z53.21 Procedure and treatment not carried out due to patient leaving prior to being seen by health care provider

== ENCOUNTER 2019-10-24 04:51 | Emergency (ER) | payer MEDICARE, MEDICAID ==
[~2019-10-24] VITALS: Ht 170.2 cm; Wt 108.0 kg
--- NOTE | 2019-10-24 04:57 | NUR ---
PT AMBULATED TO ROOM WITHOUT DIFFICULTY.
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
[2019-10-24 05:43] LABS: BASOPHILS # (AUTO) 0.1 X10'3 (0-0.2); EOSINOPHILS # (AUTO) 0.3 X10'3 (0-0.9); EOSINOPHILS % (AUTO) 3.1 % (0-6); HEMOGLOBIN 11.5 g/dl (12.0-16.0); LYMPHOCYTES # (AUTO) 2.3 X10'3 (1.1-4.8); LYMPHOCYTES % (AUTO) 22.5 % (21-51); MEAN CORPUSCULAR HEMOGLOBIN 25.8 PG (27.0-31.0); MEAN CORPUSCULAR VOLUME 78.3 FL (78-98); MEAN PLATELET VOLUME 7.8 FL (7.4-10.4); MONOCYTES # (AUTO) 0.5 X10'3 (0-0.9); MONOCYTES % (AUTO) 4.4 % (2-12); NEUTROPHILS # (AUTO) 7.1 X10'3 (1.8-7.7); PLATELET COUNT 420 X10'3 (140-440); RED BLOOD COUNT 4.47 X10'6 (4.20-5.60); WHITE BLOOD COUNT 10.2 X10'3 (4.5-11.0)
[2019-10-24 05:48] LABS: ALANINE AMINOTRANSFERASE 30 U/L (12-78); ALBUMIN 3.8 G/DL (3.4-5.0); ALKALINE PHOSPHATASE 149 IU/L (46-116); ANION GAP 7 (8-16); ASPARTATE AMINO TRANSFERASE 18 U/L (10-37); BILIRUBIN,TOTAL 0.2 MG/DL (0.1-1.0); BLOOD UREA NITROGEN 23 MG/DL (7-18); BUN/CREATININE RATIO 20.5 (6.6-38.0); CALCIUM 9.2 MG/DL (8.5-10.1); CHLORIDE 106 MMOL/L (99-107); CREATININE 1.12 MG/DL (0.40-0.90); GLUCOSE 115 MG/DL (70-104); POTASSIUM 3.7 MMOL/L (3.5-5.1); SODIUM 142 MMOL/L (135-145); TOTAL CARBON DIOXIDE 28.9 MMOL/L (24-32); TOTAL PROTEIN 7.8 G/DL (6.4-8.2); eGFR 52 ML/MIN
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
[2019-10-24] MEDS ORDERED: PRED20TA PO (06:38)
[2019-10-24 06:53] VITALS: BP 144/85
== END 2019-10-24 06:56 | disposition home or self-care (01) ==
LOC: EEVIPCON 04:52 → ER 04:52
DX: K14.9 Disease of tongue, unspecified (principal); R20.2 Paresthesia of skin; R07.89 Other chest pain; I25.10 Atherosclerotic heart disease of native coronary artery without angina pectoris; I50.9 Heart failure, unspecified; I25.2 Old myocardial infarction; E11.22 Type 2 diabetes mellitus with diabetic chronic kidney disease; I13.10 Hypertensive heart and chronic kidney disease without heart failure, with stage 1 through stage 4 chronic kidney disease, or unspecified chronic kidney disease; N18.9 Chronic kidney disease, unspecified; G89.29 Other chronic pain; Z86.73 Personal history of transient ischemic attack (TIA), and cerebral infarction without residual deficits; Z90.49 Acquired absence of other specified parts of digestive tract; Z90.710 Acquired absence of both cervix and uterus; Z98.890 Other specified postprocedural states; Z88.0 Allergy status to penicillin; Z88.2 Allergy status to sulfonamides; Z88.6 Allergy status to analgesic agent; Z88.8 Allergy status to other drugs, medicaments and biological substances; Z91.011 Allergy to milk products; Z79.82 Long term (current) use of aspirin; Z79.899 Other long term (current) drug therapy
CPT/HCPCS: 36415; 71045; 80053; 84484; 85025; 93005; 99284

== ENCOUNTER 2021-02-15 01:03 | Emergency (ER) | payer OTHER, MEDICARE ==
[~2021-02-15] VITALS: Ht 170.2 cm; Wt 108.2 kg
[~2021-02-15 01:03] MED LIST changes: -CHOL500044 PO; -LISI10TA4 PO; -MIRT15TA3 PO; -PRAZ1CAP5 PO; -SERT100T10 PO
[2021-02-15 01:11] VITALS: BP 129/77
[2021-02-15] MEDS ORDERED: CEPH-585 PO (03:04)
[2021-02-15] MEDS ORDERED: cephalexin 500mg capsule PO ONE (03:05)
== END 2021-02-15 03:46 | disposition home or self-care (01) ==
LOC: ER 01:04
DX: S88.011A Complete traumatic amputation at knee level, right lower leg, initial encounter (principal); I25.10 Atherosclerotic heart disease of native coronary artery without angina pectoris; I50.9 Heart failure, unspecified; I11.0 Hypertensive heart disease with heart failure; I25.2 Old myocardial infarction; E11.9 Type 2 diabetes mellitus without complications; M19.90 Unspecified osteoarthritis, unspecified site; G89.29 Other chronic pain; M79.7 Fibromyalgia; Z86.73 Personal history of transient ischemic attack (TIA), and cerebral infarction without residual deficits; Z85.9 Personal history of malignant neoplasm, unspecified; Z90.49 Acquired absence of other specified parts of digestive tract; Z90.710 Acquired absence of both cervix and uterus; Z98.890 Other specified postprocedural states; Z88.0 Allergy status to penicillin; Z88.2 Allergy status to sulfonamides; Z91.011 Allergy to milk products; Z91.048 Other nonmedicinal substance allergy status; Z88.8 Allergy status to other drugs, medicaments and biological substances; X58.XXXA Exposure to other specified factors, initial encounter; Y93.89 Activity, other specified; Y92.89 Other specified places as the place of occurrence of the external cause; Y99.8 Other external cause status
CPT/HCPCS: 87070; 99283